=== PATIENT | female | born 1970 | race Caucasian/White ===

== ENCOUNTER 2017-01-05 01:14 | Emergency (ER) | payer SELFPAY ==
[2017-01-05 01:17] VITALS: BP 157/86; PULSE 83; RESP 15; TEMP 99.6; O2SAT 98
[2017-01-05] MEDS ORDERED: MELO-1 PO (02:10)
[2017-01-05] MEDS ORDERED: PAXI30TA7 PO (02:13)
[2017-01-05] MEDS ORDERED: HUMI40KI SQ (02:13)
[2017-01-05] MEDS ORDERED: PRIL10PO (02:14)
[2017-01-05] MEDS ORDERED: HYDR-3288 PO (02:14)
[2017-01-05] MEDS ORDERED: HYDROmorphone HCL PF 1 MG/ML VIAL IV PUSH ONE (02:15)
[2017-01-05] MEDS ORDERED: ONDANSETRON HCL 4 MG/2 ML VIAL IV PUSH ONE (02:15)
[2017-01-05] MEDS ORDERED: ALPR.5 PO (02:15)
[2017-01-05] MEDS ORDERED: EYESOL12 EACH EYE (02:15)
--- NOTE | 2017-01-05 02:15 | PD ---
HPI Chief Complaint: Pain: Acute or Chronic Time Seen by Provider: 02:07 Travel History International Travel<30 days: No Contact w/Intl Traveler<30days: No Traveled to known affect area: No History of Present Illness HPI PATIENT STATES SHE HAS A H/O SPONDYLITIS? FOR WHICH SHE IS ON HUMIRA AND MELOXICAM....OVER LAST TWO DAYS SHE HAS HAD CHUNG, OVER FOREHEAD, 01/08, NO PHOTOPHOBIA, MELOXICAM WAS HELPING BUT SHE HAS RAN OUT OF IT RECENTLY. DENIES FEVER/N/V/D/ABD PAIN PFSH Social History Tobacco Use: No Allergies-Medications (Allergen,Severity, Reaction): Coded Allergies: No Known Allergies (Unverified , 01/05/17) Reported Meds & Prescriptions Reported Meds & Active Scripts Active Fioricet (Lrzfgeqbbh-Egibcgaduhpwu-Fjdixcgo) 50-300-40 Mg Cap 1 Cap PO Q4H PRN Reported Eye Drops Allergy Relief Opth Drops (Tetrahydrozoline-Zinc Sulfate Opth Drops) 0.05-0.25 % Soln 1 Drop EACH EYE BID Xanax (Alprazolam) 0.5 Mg Tab 0.5 Mg PO Q6H PRN Prilosec (Omeprazole Magnesium) 10 Mg Pow [place] (Hydrocodone-Acetaminophen) 7.5-325 mg Tab 1 Tab PO Q4H PRN Paxil (Paroxetine HCl) 30 Mg Tab 40 Mg PO DAILY Humira 2-Pack Inj (Adalimumab 2-Pack Inj) 40 Mg/0.8 Ml Syr 40 Mg SQ Q14D Meloxicam 15 Mg Tab 15 Mg PO DAILY Review of Systems Except as stated in HPI: all other systems reviewed are Neg HENT: Positive: Headaches Physical Exam Narrative GENERAL: SKIN: Warm and dry. HEAD: Atraumatic. Normocephalic. EYES: Pupils equal and round. No scleral icterus. No injection or drainage. ENT: No nasal bleeding or discharge. Mucous membranes pink and moist. TTP OVER MAXILLA/FRONTAL SINUS NECK: Trachea midline. No JVD. CARDIOVASCULAR: Regular rate and rhythm. RESPIRATORY: No accessory muscle use. Clear to auscultation. Breath sounds equal bilaterally. GASTROINTESTINAL: Abdomen soft, non-tender, nondistended. Hepatic and splenic margins not palpable. MUSCULOSKELETAL: Extremities without clubbing, cyanosis, or edema. No obvious deformities. NEUROLOGICAL: Awake and alert. No obvious cranial nerve deficits. Motor grossly within normal limits. Five out of 5 muscle strength in the arms and legs. Normal speech. PSYCHIATRIC: Appropriate mood and affect; insight and judgment normal. Data Data Last Documented VS Vital Signs Date Time Temp Pulse Resp B/P Pulse Ox O2 Delivery O2 Flow Rate FiO2 01/05/17 03:47 83 18 127/62 98 01/05/17 01:17 99.6 Room Air Orders Influenzae A/B Antigen (01/05/17 02:15) Ct Brain W/O Iv Contrast(Rout) (01/05/17 02:15) Iv Access Insert/Monitor (01/05/17 02:15) Ed Urine Pregnancytest Poc (01/05/17 02:15) Ondansetron Inj (Zofran Inj) (01/05/17 02:15) Hydromorphone Pf Inj (Dilaudid Pf Inj) (01/05/17 02:15) MDM Medical Decision Making Medical Screen Exam Complete: Yes Emergency Medical Condition: Yes Medical Record Reviewed: Yes Differential Diagnosis FLU V SINUSITIS V TENSION CHUNG Narrative Course FLU NEG, CT NEG FOR ICH/SINUS DZ...CURRENTLY PATIENT IS DOING WELL AND PAIN IS UNDER CONTROL Diagnosis Primary Impression: TENSION HEADACHE Scripts Souvverhca-Xgoxvmngwufrh-Loomxrvs (Fioricet)50-300-40 Mg Cap1 Cap PO Q4H PRN ( HEADACHE) #20 CAP Ref 0 Prov:Darian Sandoval MD 01/05/17 Disposition: 01 DISCHARGE HOME Condition: Stable Darian Sandoval MD Jan 05, 2017 02:15
--- NOTE | 2017-01-05 03:01 | RADRPT ---
EXAM DATE/TIME: 01/05/2017 02:35 [place] COMPARISON: No previous studies available for comparison. INDICATIONS : Cephalgia. RADIATION DOSE: 56.35 CTDIvol (mGy) MEDICAL HISTORY : None SURGICAL HISTORY : None. ENCOUNTER: Initial ACUITY: 1 day PAIN SCALE: 8/10 LOCATION: cranial TECHNIQUE: Multiple contiguous axial images were obtained of the head. Using automated exposure control and adj ustment of the mA and/or kV according to patient size, radiation dose was kept as low as reasonably a chievable to obtain optimal diagnostic quality images. DICOM format image data is available electro nically for review and comparison. FINDINGS: CEREBRUM: The ventricles are normal for age. No evidence of midline shift, mass lesion, hemorrhage or acute in farction. No extra-axial fluid collections are seen. POSTERIOR FOSSA: The cerebellum and brainstem are intact. The 4th ventricle is midline. The cerebellopontine angle i s unremarkable. EXTRACRANIAL: The visualized portion of the orbits is intact. SKULL: The calvaria is intact. No evidence of skull fracture. CONCLUSION: Negative exam. Jace Curiel MD on January 05, 2017 at 2:58 Board Certified Radiologist. This report was verified electronically.
[2017-01-05] MEDS ORDERED: BUTA1CAP PO (03:11)
[2017-01-05 03:47] VITALS: BP 127/62
== END 2017-01-05 03:48 | disposition home or self-care (01) ==
LOC: NEPC 01:14
DX: G44.209 Tension-type headache, unspecified, not intractable (principal); Z79.899 Other long term (current) drug therapy
CPT/HCPCS: 70450; 84703; 87804; 96374; 96375; 99285; J1170; J2405

== ENCOUNTER 2017-01-05 14:56 | Inpatient (IN) | payer SELFPAY ==
[~2017-01-05] VITALS: Ht 162.6 cm; Wt 130.6 kg
[~2017-01-05 14:56] MED LIST: ALPR.5 PO; BUTA1CAP PO; EYESOL12 EACH EYE; HUMI40KI SQ; HYDR-3288 PO; MELO-1 PO; PAXI30TA7 PO; PRIL10PO
[2017-01-05 14:57] VITALS: BP 163/90; PULSE 89; RESP 15; TEMP 98.1; O2SAT 99
--- NOTE | 2017-01-05 15:07 | PD ---
Physical Exam Time Seen by Provider: 15:01 Narrative 46yo F c/o continued nausea, backaches, CHUNG, shivering, low grade fever 99.8 yesterday x 2-3 days now. Was here yesterday had CT head and flu, which were both negative. Was given Dilaudid yesterday w/ resolution of CHUNG. Returns with continued, but not worsening of symptoms. Hx of rheumatoid arthritis. Patient seen in triage. VS reviewed. Awaiting bed placement. Data Data Last Documented VS Vital Signs Date Time Temp Pulse Resp B/P Pulse Ox O2 Delivery O2 Flow Rate FiO2 01/05/17 14:57 98.1 89 15 163/90 99 MDM Supervised Visit with TONIE: Jessica George Jan 05, 2017 15:07
[2017-01-05] MEDS ORDERED: PROCHLORPERAZINE INJ 10 MG/2 ML VIAL IVP ONE (15:30)
[2017-01-05] MEDS ORDERED: ACETAMINOPHEN 325 MG TAB PO ONE (15:30)
[2017-01-05] MEDS ORDERED: SODIUM CHLOR 0.9% 1000 ML INJ 1,000 ML IV ONE (15:30)
[2017-01-05] MEDS ORDERED: SODIUM CHLORIDE 0.9% FLUSH 10 ML FLUSH IVF PRN (15:30)
[2017-01-05] MEDS ORDERED: diphenhydrAMINE HCL 50 MG/ML VIAL IVP ONE (15:30)
[2017-01-05 16:13] LABS: AUTOMATED NEUTROPHIL # 4.2 TH/MM3 (1.8-7.7); BASOPHIL % 0.5 % (0.0-2.0); EOSINOPHIL # 0.2 TH/MM3 (0-0.4); EOSINOPHIL % 3.1 % (0.0-4.0); HEMATOCRIT 30.4 % (35.0-46.0); HEMO FLAGS DIFF FINAL; LYMPH % 22.5 % (9.0-44.0); LYMPHOCYTE # 1.6 TH/MM3 (1.0-4.8); MEAN CELL VOLUME 69.3 FL (80.0-100.0); MEAN CORPUSCULAR HEMOGLOBIN 21.8 PG (27.0-34.0); MEAN CORPUSCULAR HGB CONC 31.5 % (32.0-36.0); NEUT % 56.9 % (16.0-70.0); PLATELET COUNT 405 TH/MM3 (150-450); RED BLOOD COUNT 4.39 MIL/MM3 (4.00-5.30); RED CELL DISTRIBUTION WIDTH 17.2 % (11.6-17.2); WHITE BLOOD COUNT 7.3 TH/MM3 (4.0-11.0)
[2017-01-05 16:14] LABS: PROTHROMBIN TIME - PATIENT 10.6 SEC (9.8-11.6)
[2017-01-05 16:29] LABS: BICARBONATE 26.4 MEQ/L (21.0-32.0); POTASSIUM 4.1 MEQ/L (3.5-5.1)
[2017-01-05] MEDS ORDERED: PROMETHAZINE INJ 25 MG/ML VIAL IM ONE (16:45)
--- NOTE | 2017-01-05 16:45 | PD ---
HPI Chief Complaint: Cold / Flu Symptoms Time Seen by Provider: 15:19 Travel History International Travel<30 days: No Contact w/Intl Traveler<30days: No Traveled to known affect area: No History of Present Illness HPI The patient is 46 years old. She arrives to the ER having been here last night for headache. That time a CT scan of the brain was performed and was normal. She received abortive therapy with excellent effect. She went home however headache returned. Location retro-orbital. She states that it is severe. There is photophobia. It has been present for 2 days. She reports a slight subjective fever. She does suffer with headaches however this is worse than normal. Onset at rest. Vomiting reported. She reports neck stiffness worse with flexion of the chin towards the sternum. She reports a history of meningitis in December 2004. A spinal tap was performed at that point. She reports a history of L4 5 lumbar fusion. PFSH Past Medical History Arthritis: Yes Diminished Hearing: No Headaches: Yes Tetanus Vaccination: Unknown Influenza Vaccination: Yes ?: Not : 3 Para: 2 Miscarriage: 0 : 1 Past Surgical History Cholecystectomy: Yes Other Surgery: Yes (lower lumbar fusions ) Social History Alcohol Use: Yes (occasional ) Tobacco Use: Yes Substance Use: No Allergies-Medications (Allergen,Severity, Reaction): Coded Allergies: No Known Allergies (Unverified , 01/05/17) Reported Meds & Prescriptions Reported Meds & Active Scripts Active Fioricet (Uwycrrrpwm-Xrzswheadtsqx-Cxkhtnld) 50-300-40 Mg Cap 1 Cap PO Q4H PRN Reported Eye Drops Allergy Relief Opth Drops (Tetrahydrozoline-Zinc Sulfate Opth Drops) 0.05-0.25 % Soln 1 Drop EACH EYE BID Xanax (Alprazolam) 0.5 Mg Tab 0.5 Mg PO Q6H PRN Prilosec (Omeprazole Magnesium) 10 Mg Pow [place] (Hydrocodone-Acetaminophen) 7.5-325 mg Tab 1 Tab PO Q4H PRN Paxil (Paroxetine HCl) 30 Mg Tab 40 Mg PO DAILY Humira 2-Pack Inj (Adalimumab 2-Pack Inj) 40 Mg/0.8 Ml Syr 40 Mg SQ Q14D Meloxicam 15 Mg Tab 15 Mg PO DAILY Review of Systems Except as stated in HPI: all other systems reviewed are Neg Physical Exam Narrative GENERAL: 46 yo F, BMI 49, mild distress 2/2 pain and/or nausea SKIN: Warm and dry. HEAD: Atraumatic. Normocephalic. Pt has intact rotation/flexion/extension. EYES: No injection or drainage. Pupils equal round and reactive to light. Normal range of motion with conjugate gaze ENT: No nasal bleeding or discharge. Mucous membranes pink and moist. NECK: Trachea midline. No JVD. CARDIOVASCULAR: Regular rate and rhythm. RESPIRATORY: No accessory muscle use. Clear to auscultation. Breath sounds equal bilaterally. GASTROINTESTINAL: Abdomen soft, non-tender, nondistended. Hepatic and splenic margins not palpable. MUSCULOSKELETAL: Extremities without clubbing, cyanosis, or edema. No obvious deformities. NEUROLOGICAL: Awake and alert. No obvious cranial nerve deficits. Motor grossly within normal limits. Five out of 5 muscle strength in the arms and legs. Normal speech. PSYCHIATRIC: Appropriate mood and affect; insight and judgment normal. Data Data Last Documented VS Vital Signs Date Time Temp Pulse Resp B/P Pulse Ox O2 Delivery O2 Flow Rate FiO2 01/05/17 16:40 20 01/05/17 14:57 98.1 89 163/90 99 Vital signs reviewed Orders Complete Blood Count With Diff (01/05/17 15:30) Basic Metabolic Panel (Bmp) (01/05/17 15:30) Westergren Sedimentation Rate (01/05/17 15:30) Prothrombin Time / Inr (Pt) (01/05/17 15:30) Csf Cell Count + Differential (01/05/17 15:30) Glucose, Csf (01/05/17 15:30) Total Protein, Csf (01/05/17 15:30) Ecg Monitoring (01/05/17 15:30) Iv Access Insert/Monitor (01/05/17 15:30) Oximetry (01/05/17 15:30) Sodium Chloride 0.9% Flush (Ns Flush) (01/05/17 15:30) Acetaminophen (Tylenol) (01/05/17 15:30) Prochlorperazine Inj (Compazine Inj) (01/05/17 15:30) Diphenhydramine Inj (Benadryl Inj) (01/05/17 15:30) Sodium Chlor 0.9% 1000 Ml Inj (Ns 1000 M (01/05/17 15:30) Lumbar Puncture (01/05/17 ) Vital Signs (Adult) .On admission (01/05/17 15:42) Notify Radiology (01/05/17 15:42) Promethazine Inj (Phenergan Inj) (01/05/17 16:45) Labs Laboratory Tests Test 01/05/17 15:45 White Blood Count 7.3 TH/MM3 Red Blood Count 4.39 MIL/MM3 Hemoglobin 9.6 GM/DL Hematocrit 30.4 % Mean Corpuscular Volume 69.3 FL Mean Corpuscular Hemoglobin 21.8 PG Mean Corpuscular Hemoglobin 31.5 % Concent Red Cell Distribution Width 17.2 % Platelet Count 405 TH/MM3 Mean Platelet Volume 7.9 FL Neutrophils (%) (Auto) 56.9 % Lymphocytes (%) (Auto) 22.5 % Monocytes (%) (Auto) 17.0 % Eosinophils (%) (Auto) 3.1 % Basophils (%) (Auto) 0.5 % Neutrophils # (Auto) 4.2 TH/MM3 Lymphocytes # (Auto) 1.6 TH/MM3 Monocytes # (Auto) 1.2 TH/MM3 Eosinophils # (Auto) 0.2 TH/MM3 Basophils # (Auto) 0.0 TH/MM3 CBC Comment DIFF FINAL Differential Comment Erythrocyte Sedimentation Rate 46 mm/hr Prothrombin Time 10.6 SEC Prothromb Time International 1.0 RATIO Ratio Sodium Level 133 MEQ/L Potassium Level 4.1 MEQ/L Chloride Level 100 MEQ/L Carbon Dioxide Level 26.4 MEQ/L Anion Gap 7 MEQ/L Blood Urea Nitrogen 15 MG/DL Creatinine 0.65 MG/DL Estimat Glomerular Filtration 99 ML/MIN Rate Random Glucose 142 MG/DL Calcium Level 8.4 MG/DL [facility] Medical Decision Making Medical Screen Exam Complete: Yes Emergency Medical Condition: Yes Differential Diagnosis Aneurysm, subarachnoid hemorrhage, meningitis, subdural hematoma, thrombotic disease, migraine, chronic pain, tension headache, idiopathic intracranial HTN Narrative Course CBC & BMP Diagram 01/05/17 15:45 INR is 1.0 ESR 46 Patient reports a history of anemia, however is unsure of normal hgb value. We had a head CT from 14 hours prior which is normal. Due to habitus and the presence of lumbar spine hardware fluoroscopic guided lumbar puncture has been ordered. An invasive procedures service called at 4:50 PM and stated they would be able to do the procedure by about 5:40PM. The patient did vomit at approximately 4:30 PM and Phenergan was added. The patient had received Compazine about 30 minutes prior. At 455pm pt reassessed and reports mild to moderate improvement of cephalgia. Nausea improved after phenergan. Oncoming provider to reassess patient, follow up LP results and disposition appropriately. Steve Gupta MD Jan 05, 2017 16:45
[2017-01-05 17:57] VITALS: BP 145/88; PULSE 82; RESP 15; TEMP 99.1; O2SAT 96
--- NOTE | 2017-01-05 18:45 | PD.RAD ---
Post Procedure Progress Note Pre Procedure Diagnosis: (1) CHUNG (headache) Post Procedure Diagnosis: (1) CHUNG (headache) Procedure Date: Jan 05, 2017 Supervising Radiologist: Ben Barkley Proceduralist/Assist: Hailey Conroy, RT(R)(CV), Stacie Weston RT(R)() Anesthesia: Local Plan of Activity Patient to Unit: Nursing Unit Patient Condition: Good Additional Comments: L2-3 puncture. Clear CSF. Openning pressure=20.25 cmH20 See PACS Report for procedural detail/treatment Ben Barkley MD Jan 05, 2017 18:45
[2017-01-05 19:21] VITALS: BP 155/87; PULSE 80; RESP 16; O2SAT 98
[2017-01-05 20:07] LABS: CSF LYMPHOCYTES 76 %; CSF MONOCYTES 22 %; CSF NEUTROPHILS 2 %
[2017-01-05 20:08] LABS: GROSS BLOOD TUBE #1 0 (0); GROSS BLOOD TUBE #2 0 (0); GROSS BLOOD TUBE #3 0 (0); GROSS BLOOD TUBE #4 0 (0); SUPERNATE COLOR TUBE #1 CLEAR (CLEAR); SUPERNATE COLOR TUBE #2 CLEAR (CLEAR); SUPERNATE COLOR TUBE #3 CLEAR (CLEAR); SUPERNATE COLOR TUBE #4 CLEAR (CLEAR); VOLUME TUBE # 1 2.5 ML; VOLUME TUBE # 2 2.5 ML; VOLUME TUBE # 3 2.5 ML; VOLUME TUBE # 4 3.5 ML
[2017-01-05 20:09] LABS: WBC TUBE #4 36 /MM3 (0-10)
--- NOTE | 2017-01-05 20:19 | PD ---
Physical Exam Date Seen by Provider: Jan 05, 2017 Time Seen by Provider: 20:35 Narrative 46-year-old female came to the emergency with history of headache, photophobia, fever and neck stiffness. Patient was seen by the previous ER physician. Please refer to his notes regarding the details on history and physical. Case was signed over to me to follow-up on the lumbar puncture results. The report came back with elevated WBC count and protein. I've given her meningitic dose of Rocephin IV and patient has been admitted to the hospitalist. I informed this to the patient and her and they understand and an okay with the plan. Data Data Last Documented VS Vital Signs Date Time Temp Pulse Resp B/P Pulse Ox O2 Delivery O2 Flow Rate FiO2 01/05/17 19:21 80 16 155/87 98 Room Air 01/05/17 17:57 99.1 Orders Complete Blood Count With Diff (01/05/17 15:30) Basic Metabolic Panel (Bmp) (01/05/17 15:30) Westergren Sedimentation Rate (01/05/17 15:30) Prothrombin Time / Inr (Pt) (01/05/17 15:30) Csf Cell Count + Differential (01/05/17 15:30) Glucose, Csf (01/05/17 15:30) Total Protein, Csf (01/05/17 15:30) Ecg Monitoring (01/05/17 15:30) Iv Access Insert/Monitor (01/05/17 15:30) Oximetry (01/05/17 15:30) Sodium Chloride 0.9% Flush (Ns Flush) (01/05/17 15:30) Acetaminophen (Tylenol) (01/05/17 15:30) Prochlorperazine Inj (Compazine Inj) (01/05/17 15:30) Diphenhydramine Inj (Benadryl Inj) (01/05/17 15:30) Sodium Chlor 0.9% 1000 Ml Inj (Ns 1000 M (01/05/17 15:30) Lumbar Puncture (01/05/17 ) Vital Signs (Adult) .On admission (01/05/17 15:42) Notify Radiology (01/05/17 15:42) Promethazine Inj (Phenergan Inj) (01/05/17 16:45) Vital Signs (Adult) .As directed (01/05/17 18:44) Activity Bed Rest (01/05/17 18:44) Notify Radiology (01/05/17 18:44) ^ Encourage Fluids (01/05/17 18:44) Anticoagulant Alert (01/05/17 18:44) Csf Culture And Gram Stain (01/05/17 18:35) Ceftriaxone Inj (Rocephin Inj) (01/05/17 20:30) Blood Culture (01/05/17 20:18) Admit Order (Ed Use Only) (01/05/17 20:34) Labs Laboratory Tests Test 01/05/17 01/05/17 15:45 18:35 White Blood Count 7.3 TH/MM3 Red Blood Count 4.39 MIL/MM3 Hemoglobin 9.6 GM/DL Hematocrit 30.4 % Mean Corpuscular Volume 69.3 FL Mean Corpuscular Hemoglobin 21.8 PG Mean Corpuscular Hemoglobin 31.5 % Concent Red Cell Distribution Width 17.2 % Platelet Count 405 TH/MM3 Mean Platelet Volume 7.9 FL Neutrophils (%) (Auto) 56.9 % Lymphocytes (%) (Auto) 22.5 % Monocytes (%) (Auto) 17.0 % Eosinophils (%) (Auto) 3.1 % Basophils (%) (Auto) 0.5 % Neutrophils # (Auto) 4.2 TH/MM3 Lymphocytes # (Auto) 1.6 TH/MM3 Monocytes # (Auto) 1.2 TH/MM3 Eosinophils # (Auto) 0.2 TH/MM3 Basophils # (Auto) 0.0 TH/MM3 CBC Comment DIFF FINAL Differential Comment Erythrocyte Sedimentation Rate 46 mm/hr Prothrombin Time 10.6 SEC Prothromb Time International 1.0 RATIO Ratio Sodium Level 133 MEQ/L Potassium Level 4.1 MEQ/L Chloride Level 100 MEQ/L Carbon Dioxide Level 26.4 MEQ/L Anion Gap 7 MEQ/L Blood Urea Nitrogen 15 MG/DL Creatinine 0.65 MG/DL Estimat Glomerular Filtration 99 ML/MIN Rate Random Glucose 142 MG/DL Calcium Level 8.4 MG/DL CSF Volume (Tube 1) 2.5 ML CSF Supernatant Color (tube 1) CLEAR CSF Gross Blood (Tube 1) 0 CSF Volume (Tube 2) 2.5 ML CSF Supernatant Color (tube 2) CLEAR CSF Gross Blood (Tube 2) 0 CSF Volume (Tube 3) 2.5 ML CSF Supernatant Color (tube 3) CLEAR CSF Gross Blood (Tube 3) 0 CSF Volume (Tube 4) 3.5 ML CSF Supernatant Color (tube 4) CLEAR CSF Gross Blood (Tube 4) 0 CSF WBC (Tube 4) 36 /MM3 CSF RBC (Tube 4) 11 /MM3 CSF Neutrophils 2 % CSF Lymphocytes 76 % CSF Monocytes 22 % CSF Glucose 50 MG/DL CSF Total Protein 47.4 MG/DL MDM Supervised Visit with TONIE: No Diagnosis Primary Impression: Meningitis Admitting Information Admitting Physician Requests: Admit Alok Weiss MD Jan 05, 2017 20:19
[2017-01-05] MEDS ORDERED: cefTRIAXone INJ 2,000 MG in SODIUM CHLORIDE 0.9% INJ 100 ML IV ONE (20:30)
[2017-01-05] MEDS ORDERED: BISACODYL 10 MG SUPP RECTAL PRN (21:00)
[2017-01-05] MEDS ORDERED: ACETAMINOPHEN 325 MG TAB PO PRN (21:00)
[2017-01-05] MEDS ORDERED: LACTULOSE SYRUP 20 GM/30 ML CUP PO PRN (21:00)
[2017-01-05] MEDS ORDERED: MAGNESIUM HYDROXIDE SUSP 30 ML CUP PO PRN (21:00)
[2017-01-05] MEDS ORDERED: SODIUM CHLORIDE 0.9% FLUSH 10 ML FLUSH IV FLUSH PRN (21:00)
[2017-01-05] MEDS ORDERED: SENNOSIDES 8.6 MG TAB PO PRN (21:00)
[2017-01-05] MEDS ORDERED: NALOXONE HCL 0.4 MG/ML AMP IV PRN (21:00)
[2017-01-05] MEDS ORDERED: ONDANSETRON HCL 4 MG/2 ML VIAL IVP PRN (21:00)
[2017-01-05] MEDS: SODIUM CHLORIDE 0.9% FLUSH 10 ML FLUSH IV FLUSH SCH (21:03)
[2017-01-05] MEDS: DOCUSATE SODIUM 50 MG/SENNA 8.6 MG TAB PO SCH (21:03)
[2017-01-05 22:15] VITALS: BP 127/66; PULSE 72; RESP 18; TEMP 97.6; O2SAT 94
--- NOTE | 2017-01-05 22:55 | HHI.HP ---
[facility]Staff Admission Diagnosis meningitis Diagnoses: Chief Complaint: Headache Travel History International Travel<30 Days: No Contact w/Intl Traveler <30 Da: No Traveled to Known Affected Are: No History of Present Illness Written by NERISSA Fuller acting as scribe for Dr. Medina] on 01/05/17 at 22:22. 46 y/o female visiting from [place] with a history of CHUNG, Depression, dry eyes, RA and meningitis 2004 presented to the ED with complaints of increased Headaches since Sunday. She was seen early this morning in the ED, was given medication and then discharged. She states the pain improved for a little bit but then got work tonight. She states it is a dull ache, currently 3/10 behind both her eyes made worse with light and sound. In ED it was a 10/10 with associated nausea, vomiting, and sob. She states at home she also have fevers of 99, chills, and neck stiffness. Denies any chest pain. Review of Systems Constitutional: COMPLAINS OF: Fever, Chills Eyes: COMPLAINS OF: Photosensitivity Respiratory: COMPLAINS OF: Shortness of breath, DENIES: Cough Cardiovascular: DENIES: Chest pain, Lower Extremity Edema Gastrointestinal: COMPLAINS OF: Nausea, Vomiting Genitourinary: DENIES: Hematuria, Dysuria Musculoskeletal: COMPLAINS OF: Stiffness (neck), DENIES: Back pain Integumentary: DENIES: Rash Hematologic/lymphatic: DENIES: Lymphadenopathy Immunologic/allergic: DENIES: Urticaria Neurologic: COMPLAINS OF: Headache Psychiatric: DENIES: Confusion Past Family Social History Past Medical History Headaches RA Meningitis 2004 Dry eyes Depression Past Surgical History Cholecystectomy Tonsillectomy Tubal ligation Lumbar fusion L4-5 Reported Medications Reported Meds & Active Scripts Active Fioricet (Jorsfwhfbu-Tivqidgzmtteq-Zexdcrdd) 50-300-40 Mg Cap 1 Cap PO Q4H PRN Reported Eye Drops Allergy Relief Opth Drops (Tetrahydrozoline-Zinc Sulfate Opth Drops) 0.05-0.25 % Soln 1 Drop EACH EYE BID Xanax (Alprazolam) 0.5 Mg Tab 0.5 Mg PO Q6H PRN Prilosec (Omeprazole Magnesium) 10 Mg Pow [place] (Hydrocodone-Acetaminophen) 7.5-325 mg Tab 1 Tab PO Q4H PRN Paxil (Paroxetine HCl) 30 Mg Tab 40 Mg PO DAILY Humira 2-Pack Inj (Adalimumab 2-Pack Inj) 40 Mg/0.8 Ml Syr 40 Mg SQ Q14D Meloxicam 15 Mg Tab 15 Mg PO DAILY Allergies: Coded Allergies: No Known Allergies (Unverified , 01/05/17) Active Ordered Medications Current Medications Medications (Trade) Dose Ordered Sig/John Route Start Time Stop Time Status Last Admin (NS Flush) 2 ml UNSCH PRN IV FLUSH 01/05/17 21:00 (NS Flush) 2 ml BID IV FLUSH 01/05/17 21:00 01/05/17 21:03 (Tylenol) 650 mg Q4H PRN PO 01/05/17 21:00 (Zofran Inj) 4 mg Q6H PRN IVP 01/05/17 21:00 (Narcan Inj) 0.4 mg UNSCH PRN IV 01/05/17 21:00 (Paulette-Colace) 1 tab BID PO 01/05/17 21:00 01/05/17 21:03 (Milk Of Magnesia Liq) 30 ml Q12H PRN PO 01/05/17 21:00 (Senokot) 17.2 mg Q12H PRN PO 01/05/17 21:00 (Dulcolax Supp) 10 mg DAILY PRN RECTAL 01/05/17 21:00 Lactulose 30 ml 30 ml DAILY PRN PO 01/05/17 21:00 (Rocephin Inj/NS Inj) 100 ml @ 200 mls/hr Q24H IV 01/06/17 20:00 Family History Dad: Heart disease Social History Patient denies any tobacco, alcohol or illicit drug use. Physical Exam Vital Signs Vital Signs Date Time Temp Pulse Resp B/P Pulse Ox O2 Delivery O2 Flow Rate FiO2 01/05/17 19:21 80 16 155/87 98 Room Air 01/05/17 17:57 99.1 82 15 145/88 96 Room Air 01/05/17 16:40 20 01/05/17 14:57 98.1 89 15 163/90 99 Physical Exam GENERAL: This is a well-nourished, obese patient laying in bed resting SKIN: No rashes, ecchymoses or lesions. Cool and dry. HEAD: Atraumatic. Normocephalic. No temporal or scalp tenderness. EYES: Pupils equal round and reactive. Extraocular motions intact. ENT: Nose without bleeding, purulent drainage or septal hematoma. Throat without erythema, tonsillar hypertrophy or exudate. Uvula midline. Airway patent. NECK: Trachea midline. No JVD or lymphadenopathy. Tenderness in neck CARDIOVASCULAR: Regular rate and rhythm without murmurs, gallops, or rubs. RESPIRATORY: Clear to auscultation. Breath sounds equal bilaterally. No wheezes , rales, or rhonchi. GASTROINTESTINAL: Abdomen soft, non-tender, nondistended MUSCULOSKELETAL: Extremities without clubbing, cyanosis, or edema. No joint tenderness, effusion, or edema noted. No calf tenderness. NEUROLOGICAL: Awake and alert. Motor and sensory grossly within normal limits. Normal speech. Laboratory Laboratory Tests Test 01/05/17 01/05/17 15:45 18:35 White Blood Count 7.3 Red Blood Count 4.39 Hemoglobin 9.6 Hematocrit 30.4 Mean Corpuscular Volume 69.3 Mean Corpuscular Hemoglobin 21.8 Mean Corpuscular Hemoglobin 31.5 Concent Red Cell Distribution Width 17.2 Platelet Count 405 Mean Platelet Volume 7.9 Neutrophils (%) (Auto) 56.9 Lymphocytes (%) (Auto) 22.5 Monocytes (%) (Auto) 17.0 Eosinophils (%) (Auto) 3.1 Basophils (%) (Auto) 0.5 Neutrophils # (Auto) 4.2 Lymphocytes # (Auto) 1.6 Monocytes # (Auto) 1.2 Eosinophils # (Auto) 0.2 Basophils # (Auto) 0.0 CBC Comment DIFF FINAL Differential Comment Erythrocyte Sedimentation Rate 46 Prothrombin Time 10.6 Prothromb Time International 1.0 Ratio Sodium Level 133 Potassium Level 4.1 Chloride Level 100 Carbon Dioxide Level 26.4 Anion Gap 7 Blood Urea Nitrogen 15 Creatinine 0.65 Estimat Glomerular Filtration 99 Rate Random Glucose 142 Calcium Level 8.4 CSF Volume (Tube 1) 2.5 CSF Supernatant Color (tube 1) CLEAR CSF Gross Blood (Tube 1) 0 CSF Volume (Tube 2) 2.5 CSF Supernatant Color (tube 2) CLEAR CSF Gross Blood (Tube 2) 0 CSF Volume (Tube 3) 2.5 CSF Supernatant Color (tube 3) CLEAR CSF Gross Blood (Tube 3) 0 CSF Volume (Tube 4) 3.5 CSF Supernatant Color (tube 4) CLEAR CSF Gross Blood (Tube 4) 0 CSF WBC (Tube 4) 36 CSF RBC (Tube 4) 11 CSF Neutrophils 2 CSF Lymphocytes 76 CSF Monocytes 22 CSF Glucose 50 CSF Total Protein 47.4 Date/Time Procedure Status Source Growth 01/05/17 20:38 Aerobic Blood Culture Received Blood Peripheral Pending 01/05/17 20:38 Anaerobic Blood Culture Received Blood Peripheral Pending 01/05/17 18:35 Gram Stain - Final Resulted Cerebral Spinal Fluid Lumbar Puncture 01/05/17 18:35 CSF Culture Resulted Cerebral Spinal Fluid Lumbar Puncture Pending Result Diagram: 01/05/17 1545 01/05/17 1545 Assessment and Plan Problem List: (1) Meningitis ICD Code: G03.9 Status: Acute Assessment and Plan 46 y/o female visiting from [place] with a history of CHUNG, RA and meningitis 2004 presented to the ED with complaints of increased Headaches since Sunday. Meningitis, suspected viral -Lumbar puncture completed, CSF shows protein 47.4, wbc 36, cultures pending -Consult Infectious disease for recommendations - Rocephin IV -Fioricet for pain management Depression, chronic -Cont home medication: Paxil DVT prophylaxis: SCDs This note was transcribed by brandon El. I, Dr. Candido Terrazas personally performed the history, physical exam, and medical decision making; and confirmed the accuracy of the information in the transcribed note. Authenticated by Dr. Candido Terrazas on 01/05/17 at 23:17. Discussed Condition With Patient, RN and patients Physician Certification 2 Midnight Certification Type: Admission for Inpatient Services Order for Inpatient Services The services are ordered in accordance with Medicare regulations or non- Medicare payer requirements, as applicable. In the case of services not specified as inpatient-only, they are appropriately provided as inpatient services in accordance with the 2-midnight benchmark. Estimated LOS (days): 2 2 days is the estimated time the patient will need to remain in the hospital, assuming treatment plan goals are met and no additional complications. Post-Hospital Plan: Home Tamara El Jan 05, 2017 22:55 Candido Terrazas MD Jan 05, 2017 23:17
[2017-01-06 04:00] VITALS: BP 135/74; PULSE 76; RESP 18; TEMP 98.3; O2SAT 96
[2017-01-06 07:49] LABS: AUTOMATED NEUTROPHIL # 3.3 TH/MM3 (1.8-7.7); BASOPHIL % 0.5 % (0.0-2.0); EOSINOPHIL # 0.2 TH/MM3 (0-0.4); EOSINOPHIL % 2.3 % (0.0-4.0); HEMATOCRIT 31.5 % (35.0-46.0); HEMO FLAGS DIFF FINAL; LYMPH % 28.8 % (9.0-44.0); LYMPHOCYTE # 1.9 TH/MM3 (1.0-4.8); MEAN CELL VOLUME 70.2 FL (80.0-100.0); MEAN CORPUSCULAR HEMOGLOBIN 21.8 PG (27.0-34.0); MONO % 19.1 % (0.0-8.0); NEUT % 49.3 % (16.0-70.0); PLATELET COUNT 375 TH/MM3 (150-450); RED BLOOD COUNT 4.49 MIL/MM3 (4.00-5.30); RED CELL DISTRIBUTION WIDTH 17.7 % (11.6-17.2); WHITE BLOOD COUNT 6.6 TH/MM3 (4.0-11.0)
[2017-01-06 08:04] VITALS: BP 135/69; PULSE 67; RESP 17; TEMP 97.8; O2SAT 96
[2017-01-06 08:12] LABS: ALT (GPT) 43 U/L (10-53); ANION GAP 7 MEQ/L (5-15); AST (GOT) 34 U/L (15-37); BICARBONATE 28.4 MEQ/L (21.0-32.0); BLOOD UREA NITROGEN 8 MG/DL (7-18); CHLORIDE 104 MEQ/L (98-107); GLOMERULAR FILTRATION RATE 133 ML/MIN (>89); POTASSIUM 3.8 MEQ/L (3.5-5.1); SODIUM (NA) 139 MEQ/L (136-145)
[2017-01-06] MEDS: DOCUSATE SODIUM 50 MG/SENNA 8.6 MG TAB PO SCH ×2 (08:12→21:09)
[2017-01-06] MEDS: PARoxetine HCL 20 MG TAB PO SCH (08:12)
[2017-01-06 08:15] LABS: ALKALINE PHOSPHATASE 368 U/L (45-117); TOTAL BILIRUBIN ADULT 0.6 MG/DL (0.2-1.0)
[2017-01-06] MEDS: ACETAMIN 325 MG/BUTALBITAL 50 MG/CAFFEINE 40 MG TAB PO PRN ×4 (08:18→21:09)
[2017-01-06] MEDS: SODIUM CHLORIDE 0.9% FLUSH 10 ML FLUSH IV FLUSH SCH ×2 (08:18→21:10)
[2017-01-06] MEDS ORDERED: [UNRECOGNIZED DRUG - REMARK] EACH EYE SCH (09:00)
--- NOTE | 2017-01-06 10:56 | HHI.PR ---
Subjective Remarks resting comfortably with no distress. still has some headache and photophobia. no fever, nausea. Objective Vitals Vital Signs Date Time Temp Pulse Resp B/P Pulse Ox O2 Delivery O2 Flow Rate FiO2 01/06/17 08:04 97.8 67 17 135/69 96 01/06/17 04:00 98.3 76 18 135/74 96 01/05/17 23:45 Room Air 01/05/17 22:15 97.6 72 18 127/66 94 01/05/17 19:21 80 16 155/87 98 Room Air 01/05/17 17:57 99.1 82 15 145/88 96 Room Air 01/05/17 16:40 20 01/05/17 14:57 98.1 89 15 163/90 99 I/O 01/05/17 01/05/17 01/05/17 01/06/17 01/06/17 01/06/17 07:00 15:00 23:00 07:00 15:00 23:00 Intake Total 180 ml Balance 180 ml Intake Oral 180 ml # Voids 1 # Bowel Movements 0 Result Diagram: 01/06/17 0712 01/06/17 0712 Objective Remarks GENERAL: This is a well-nourished, well-developed patient, in no apparent distress. CARDIOVASCULAR: Regular rate and regular rhythm without murmurs, gallops, or rubs. RESPIRATORY: Clear to auscultation. Breath sounds equal bilaterally. No wheezes , rales, or rhonchi. GASTROINTESTINAL: Abdomen soft, non-tender, nondistended. Normal, active bowel sounds MUSCULOSKELETAL: Extremities without clubbing, cyanosis, or edema. NEURO: Alert & Oriented x4 to person, place, time, situation. Moves all ext x4 Procedures LP Medications and IVs Current Medications Sodium Chloride (NS Flush) 2 ml UNSCH PRN IVF FLUSH AFTER USING IV ACCESS Last administered on 01/05/17 20:51; Start 01/05/17 at 15:30; Stop 01/05/17 at 20:56; Status DC Acetaminophen (Tylenol) 650 mg ONCE ONCE PO Last administered on 01/05/17 15: 50; Start 01/05/17 at 15:30; Stop 01/05/17 at 15:31; Status DC Prochlorperazine Edisylate (Compazine Inj) 10 mg ONCE ONCE IVP Last administered on 01/05/17 15:50; Start 01/05/17 at 15:30; Stop 01/05/17 at 15:31; Status DC Diphenhydramine HCl 25 mg 25 mg ONCE ONCE IVP Last administered on 01/05/17 15 :50; Start 01/05/17 at 15:30; Stop 01/05/17 at 15:31; Status DC Sodium Chloride (NS 1000 ml Inj) 1,000 ml @ 1,000 mls/hr Q1H ONCE IV Last administered on 01/05/17 15:49; Start 01/05/17 at 15:30; Stop 01/05/17 at 16:29; Status DC Promethazine HCl 25 mg 25 mg ONCE ONCE IM Last administered on 01/05/17 16:48 ; Start 01/05/17 at 16:45; Stop 01/05/17 at 16:46; Status DC Ceftriaxone Sodium/Sodium Chloride (Rocephin Inj/NS Inj) 100 ml @ 200 mls/hr ONCE ONCE IV Last administered on 01/05/17 20:51; Start 01/05/17 at 20:30; Stop 01/05/17 at 20:59; Status DC Sodium Chloride (NS Flush) 2 ml UNSCH PRN IV FLUSH FLUSH AFTER USING IV ACCESS ; Start 01/05/17 at 21:00 Sodium Chloride (NS Flush) 2 ml BID IV FLUSH Last administered on 01/06/17 08: 18; Start 01/05/17 at 21:00 Acetaminophen (Tylenol) 650 mg Q4H PRN PO TEMP > 100.4; Start 01/05/17 at 21:00 Ondansetron HCl (Zofran Inj) 4 mg Q6H PRN IVP NAUSEA OR VOMITING; Start at 21:00 Naloxone HCl (Narcan Inj) 0.4 mg UNSCH PRN IV SEE LABEL COMMENTS; Start at 21:00 Senna/Docusate Sodium (Paulette-Colace) 1 tab BID PO Last administered on 01/06/17 08:12; Start 01/05/17 at 21:00 Magnesium Hydroxide (Milk Of Magnesia Liq) 30 ml Q12H PRN PO MILD - MODERATE CONSTIPATION; Start 01/05/17 at 21:00 Sennosides (Senokot) 17.2 mg Q12H PRN PO MODERATE - SEVERE CONSTIPATION; Start 01/05/17 at 21:00 Bisacodyl (Dulcolax Supp) 10 mg DAILY PRN RECTAL SEVERE CONSITIPATION; Start at 21:00 Lactulose 30 ml 30 ml DAILY PRN PO SEVERE CONSITIPATION; Start 01/05/17 at 21:00 Ceftriaxone Sodium/Sodium Chloride (Rocephin Inj/NS Inj) 100 ml @ 200 mls/hr Q24H IV ; Start 01/06/17 at 20:00 Paroxetine HCl (Paxil) 40 mg DAILY PO Last administered on 01/06/17 08:12; Start 01/06/17 at 09:00 Patient Own Medication PT OWN MED: Tetrahydrozoline-Zinc... BID EACH EYE ; Start 01/06/17 at 09:00; Status Hold Acetaminophen/ Butalbital/ Caffeine (Fioricet 325-50-40) 1 tab Q4H PRN PO HEADACHE Last administered on 01/06/17 08:18; Start 01/05/17 at 23:00 A/P Assessment and Plan A/P Meningitis, suspected viral -Lumbar puncture completed, CSF shows protein 47.4, wbc 36. -Consult Infectious disease for recommendations - Rocephin IV- will give one dose of Vanco -follow the cultures -Fioricet for pain management Depression, chronic -Cont home medication: Paxil DVT prophylaxis: Ondina Chapa MD Jan 06, 2017 10:56
[2017-01-06] MEDS ORDERED: VANCOMYCIN INJ 1,000 MG in SODIUM CHLOR 0.9% 250 ML INJ 250 ML IV ONE (11:00)
[2017-01-06 12:26] VITALS: BP 108/61; PULSE 72; RESP 18; TEMP 98.4; O2SAT 94
--- NOTE | 2017-01-06 15:28 | RADRPT ---
EXAM DATE/TIME: 01/05/2017 18:04 [facility] COMPARISON: No previous studies available for comparison. INDICATIONS : Patient with headaches and neck stiffness in need of lumbar puncture with opening pressures. MEDICAL HISTORY : 1.Headaches 2.Neck stiffness 3.Arthritis SURGICAL HISTORY : 1.Cholecystectomy 2.Lower lumbar fusions ENCOUNTER: Initial ACUITY: 2 days PAIN SCORE: 3/10 cranial LUMBAR PUNCTURE TIME: 1835 hours FLUORO TIME: 0.2 minutes IMAGE SERIES: 0 L2-3 OPENING PRESSURE: 20.25 cm of water CLOSING PRESSURE: Not requested. FLUID: 12 cc of clear CSF was collected and sent to the laboratory for analysis. PROCEDURE : 1. Fluoroscopic guided lumbar puncture. 2. Recording of opening pressure. The risks, benefits and alternatives to the procedure were explained and verbal and written consent w as obtained. The site was prepped in sterile fashion. Full sterile technique was used, including ca p, mask, sterile gloves and gown and a large sterile sheet. Hand hygiene and 2% chlorhexidine and/or betadine/alcohol prep was utilized per protocol for cutaneous antisepsis. The skin and subcutaneous tissues were infiltrated with local anesthetic solution. With fluoroscopic guidance the lumbar thecal sac was punctured at the above level described above and the opening pressure was recorded. The above described fluid was removed without difficulty. The patient tolerated the procedure well and there were no complications. CONCLUSION: Uncomplicated fluoroscopically guided lumbar puncture with pressures as above. Ben Barkley MD on January 06, 2017 at 15:27 Board Certified Radiologist. This report was verified electronically.
--- NOTE | 2017-01-06 15:37 | MB ---
cc: TEVIN CONTEH MD DATE OF CONSULTATION: 01/07/2016 REASON FOR CONSULTATION: Meningitis. REQUESTING PHYSICIAN: Dr. Terrazas. HISTORY OF PRESENT ILLNESS: This is a 46-year-old white female who is vacationing here in [place] from [place], [place]. The patient developed a headache approximately four days ago. She presented to the emergency department yesterday evening because of persistence of the headache and also reported that she had nausea and vomiting and neck stiffness and photophobia. The patient has a history of headaches which she says are the result of dry eyes and she notes frequent headaches from that. However, the headache was worse than normal and she came to emergency department for evaluation. A lumbar puncture was performed and it shows 36 white cells, 76% lymphocytes and 22% monocytes, some slightly elevated protein and normal glucose. CSF culture has no growth at 24 hours. The patient states that she still has photophobia. She was able to eat breakfast this morning and had no nausea. 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 She denies recent travel. She denies unusual pet or animal exposure. She states that she was able to get into the swimming pool at the [facility] where she is vacationing up until yesterday morning but then the headache became worse and she came to the emergency department for evaluation. The patient denies history of herpetic lesions. She is reported to have had meningitis in 2004. The patient describes the location of the headaches as being in the temporal area of the head and also behind the eyes. PAST MEDICAL HISTORY: 1. Rheumatoid arthritis. 2. Depression. 3. Meningitis. 4. Cholecystectomy. 5. Tonsillectomy. 6. Tubal ligation. 7. Lumbar fusion at L4-5. ALLERGIES: NO KNOWN DRUG ALLERGIES. MEDICATIONS: 1. Ceftriaxone. 2. Paxil. 3. Fioricet. 4. Paulette-Colace. SOCIAL HISTORY: The patient denies tobacco, alcohol or illicit drug use. 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 FAMILY HISTORY: Noncontributory. REVIEW OF SYSTEMS: CONSTITUTIONAL: Complains of chills. HEAD, EYES, EARS, NOSE, THROAT: Significant for headache and photophobia. RESPIRATORY: No cough or shortness of breath. CARDIOVASCULAR: No palpitations or chest pain. GASTROINTESTINAL: Significant for nausea and vomiting. GENITOURINARY: No urgency, frequency or dysuria. HEMATOPOIETIC: No easy bruising or bleeding. ENDOCRINE: No polyuria or polydipsia. MUSCULOSKELETAL: Significant for diffuse aches and pains. INTEGUMENT: No skin rash or itching. NEUROLOGIC: Denies problems with coordination. Significant for headache. PSYCHIATRIC: No mood disorders. PHYSICAL EXAMINATION: GENERAL: She is a moderately obese female who is in no acute distress. She is awake and alert and oriented. VITAL SIGNS: Temperature 97.8, blood pressure 135/69, respirations 17, heart rate 67. HEAD, EYES, EARS, NOSE, THROAT: The head is atraumatic. Extraocular movements grossly intact. Pupils reactive to light. No icterus. Oropharynx with no visible lesions. NECK: The neck is supple without adenopathy. LUNGS: Clear to auscultation. HEART: Regular rate and rhythm without murmurs, rubs or gallops. ABDOMEN: Bowel sounds present, soft, nontender. RECTAL: Not performed. EXTREMITIES: No clubbing or cyanosis or edema. SKIN: No diffuse rash. The patient has hyperemia of the face and neck. PSYCHIATRIC: The patient is calm and cooperative. NEUROLOGIC: Nonfocal. LABORATORY DATA: WBC 6.6, platelets 375,000, 49% neutrophils, 28% lymphocytes, 19% monocytes, hemoglobin 9.8. Creatinine 0.5, BUN 8, sodium 139. Liver function tests normal. IMPRESSION: Meningitis, viral versus aseptic. CSF does not suggest bacterial meningitis. RECOMMENDATIONS: 1. Continue to monitor the cerebrospinal fluid. 2. Continue ceftriaxone. 3. Obtain a herpes PCR test on the CSF. 4. Monitor the patient with supportive care and pain medications for headache and follow her clinical response to treatment. Thank you this consultation. I will follow the patient's progress with you and make further recommendations if necessary. Tevin Conteh MD FD/LULA /12:15 PM /3:26 PM MTDAlcides
[2017-01-06 16:04] VITALS: BP 132/67; PULSE 78; RESP 18; TEMP 98.4; O2SAT 98
[2017-01-06 20:00] VITALS: BP 127/71; PULSE 76; RESP 18; TEMP 98.9; O2SAT 95
[2017-01-06] MEDS: cefTRIAXone INJ 2,000 MG in SODIUM CHLORIDE 0.9% INJ 100 ML IV SCH (21:09)
[2017-01-07] VITALS: BP 120/67; PULSE 78; RESP 18; TEMP 98.7; O2SAT 96
[2017-01-07] MEDS: ACETAMIN 325 MG/BUTALBITAL 50 MG/CAFFEINE 40 MG TAB PO PRN ×5 (01:30→17:44)
[2017-01-07 04:00] VITALS: BP 146/77; PULSE 72; RESP 18; TEMP 98.3; O2SAT 97
--- NOTE | 2017-01-07 08:59 | HHI.PR ---
Subjective Remarks in no acute distress. afebrile. headache has improved. d/w the RN and no acute issues over night. Objective Vitals Vital Signs Date Time Temp Pulse Resp B/P Pulse Ox O2 Delivery O2 Flow Rate FiO2 01/07/17 04:00 98.3 72 18 146/77 97 01/07/17 04:00 Room Air 01/07/17 00:00 98.7 78 18 120/67 96 01/07/17 00:00 Room Air 01/06/17 20:00 98.9 76 18 127/71 95 01/06/17 20:00 Room Air 01/06/17 16:04 98.4 78 18 132/67 98 01/06/17 12:26 98.4 72 18 108/61 94 I/O 01/06/17 01/06/17 01/06/17 01/07/17 01/07/17 01/07/17 07:00 15:00 23:00 07:00 15:00 23:00 Intake Total 180 ml 480 ml 590 ml 240 ml Balance 180 ml 480 ml 590 ml 240 ml Intake Oral 180 ml 480 ml 240 ml 240 ml IV Total 350 ml # Voids 1 3 3 2 # Bowel Movements 0 0 1 0 Result Diagram: 01/06/17 0712 01/06/17 0712 Imaging Last Impressions Lumbar Puncture Fluoroscopy 01/05/17 0000 Signed Impressions: Service Date/Time: Thursday, January 05, 2017 18:04 - CONCLUSION: Uncomplicated fluoroscopically guided lumbar puncture with pressures as above. Ben Barkley MD Objective Remarks GENERAL: This is a well-nourished, well-developed patient, in no apparent distress. CARDIOVASCULAR: Regular rate and regular rhythm without murmurs, gallops, or rubs. RESPIRATORY: Clear to auscultation. Breath sounds equal bilaterally. No wheezes , rales, or rhonchi. GASTROINTESTINAL: Abdomen soft, non-tender, nondistended. Normal, active bowel sounds MUSCULOSKELETAL: Extremities without clubbing, cyanosis, or edema. NEURO: Alert & Oriented x4 to person, place, time, situation. Moves all ext x4 Procedures LP Medications and IVs Current Medications Sodium Chloride (NS Flush) 2 ml UNSCH PRN IVF FLUSH AFTER USING IV ACCESS Last administered on 01/05/17t 20:51; Start 01/05/17 at 15:30; Stop 01/05/17 at 20:56; Status DC Acetaminophen (Tylenol) 650 mg ONCE ONCE PO Last administered on 01/05/17 15: 50; Start 01/05/17 at 15:30; Stop 01/05/17 at 15:31; Status DC Prochlorperazine Edisylate (Compazine Inj) 10 mg ONCE ONCE IVP Last administered on 01/05/17 15:50; Start 01/05/17 at 15:30; Stop 01/05/17 at 15:31; Status DC Diphenhydramine HCl 25 mg 25 mg ONCE ONCE IVP Last administered on 01/05/17 15 :50; Start 01/05/17 at 15:30; Stop 01/05/17 at 15:31; Status DC Sodium Chloride (NS 1000 ml Inj) 1,000 ml @ 1,000 mls/hr Q1H ONCE IV Last administered on 01/05/17 15:49; Start 01/05/17 at 15:30; Stop 01/05/17 at 16:29; Status DC Promethazine HCl 25 mg 25 mg ONCE ONCE IM Last administered on 01/05/17 16:48 ; Start 01/05/17 at 16:45; Stop 01/05/17 at 16:46; Status DC Ceftriaxone Sodium/Sodium Chloride (Rocephin Inj/NS Inj) 100 ml @ 200 mls/hr ONCE ONCE IV Last administered on 01/05/17 20:51; Start 01/05/17 at 20:30; Stop 01/05/17 at 20:59; Status DC Sodium Chloride (NS Flush) 2 ml UNSCH PRN IV FLUSH FLUSH AFTER USING IV ACCESS ; Start 01/05/17 at 21:00 Sodium Chloride (NS Flush) 2 ml BID IV FLUSH Last administered on 01/06/17 21: 10; Start 01/05/17 at 21:00 Acetaminophen (Tylenol) 650 mg Q4H PRN PO TEMP > 100.4; Start 01/05/17 at 21:00 Ondansetron HCl (Zofran Inj) 4 mg Q6H PRN IVP NAUSEA OR VOMITING; Start at 21:00 Naloxone HCl (Narcan Inj) 0.4 mg UNSCH PRN IV SEE LABEL COMMENTS; Start at 21:00 Senna/Docusate Sodium (Paulette-Colace) 1 tab BID PO Last administered on 01/06/17 21:09; Start 01/05/17 at 21:00 Magnesium Hydroxide (Milk Of Osiris Lisameera) 30 ml Q12H PRN PO MILD - MODERATE CONSTIPATION; Start 01/05/17 at 21:00 Sennosides (Senokot) 17.2 mg Q12H PRN PO MODERATE - SEVERE CONSTIPATION; Start 01/05/17 at 21:00 Bisacodyl (Dulcolax Supp) 10 mg DAILY PRN RECTAL SEVERE CONSITIPATION; Start at 21:00 Lactulose 30 ml 30 ml DAILY PRN PO SEVERE CONSITIPATION; Start 01/05/17 at 21:00 Ceftriaxone Sodium/Sodium Chloride (Rocephin Inj/NS Inj) 100 ml @ 200 mls/hr Q24H IV Last administered on 01/06/17 21:09; Start 01/06/17 at 20:00 Paroxetine HCl (Paxil) 40 mg DAILY PO Last administered on 01/06/17 08:12; Start 01/06/17 at 09:00 Patient Own Medication PT OWN MED: Tetrahydrozoline-Zinc... BID EACH EYE ; Start 01/06/17 at 09:00; Status Hold Acetaminophen/ Butalbital/ Caffeine 1 tab 1 tab Q4H PRN PO HEADACHE Last administered on 01/07/17 05:35; Start 01/05/17 at 23:00 Vancomycin HCl/ Sodium Chloride (Vancomycin Inj/ NS 250 ml Inj) 250 ml @ 250 mls/hr ONCE ONCE IV Last administered on 01/06/17 12:30; Start 01/06/17 at 11: 00; Stop 01/06/17 at 11:59; Status DC A/P Assessment and Plan A/P Meningitis, suspected viral -Lumbar puncture completed, CSF shows protein 47.4, wbc 36. - Rocephin IV- will give one dose of Vanco -fluid cultures negative so far. -Fioricet for pain management -ID consult appreciated. Depression, chronic -Cont home medication: Paxil DVT prophylaxis: SCDs Discharge Planning when cleared by Ondina Sidhu MD Jan 07, 2017 08:58
[2017-01-07] MEDS: DOCUSATE SODIUM 50 MG/SENNA 8.6 MG TAB PO SCH ×2 (09:31→20:12)
[2017-01-07] MEDS: PARoxetine HCL 20 MG TAB PO SCH (09:31)
[2017-01-07] MEDS: SODIUM CHLORIDE 0.9% FLUSH 10 ML FLUSH IV FLUSH SCH ×2 (09:35→20:12)
[2017-01-07 14:06] VITALS: BP 117/71; PULSE 70; RESP 18; TEMP 99.3; O2SAT 94
--- NOTE | 2017-01-07 16:14 | HHI.IDPN ---
Note Infectious Disease Note Patient notes that the CHUNG is better. No nausea. Was able to ambulate a little in the room. No fever. Says she has back pain radiating down the left leg. CSF culture negative. PAST MEDICAL HISTORY: 1. Rheumatoid arthritis. 2. Depression. 3. Meningitis. 4. Cholecystectomy. 5. Tonsillectomy. 6. Tubal ligation. 7. Lumbar fusion at L4-5. ALLERGIES: NO KNOWN DRUG ALLERGIES. MEDICATIONS: Current Medications Medications (Trade) Dose Ordered Sig/John Route PRN Reason Start Time Stop Time Status Last Admin Dose Admin Sodium Chloride (NS Flush) 2 ml UNSCH PRN IV FLUSH FLUSH AFTER USING IV ACCESS 01/05/17 21:00 Sodium Chloride (NS Flush) 2 ml BID IV FLUSH 01/05/17 21:00 01/07/17 09:35 Acetaminophen (Tylenol) 650 mg Q4H PRN PO TEMP > 100.4 01/05/17 21:00 Ondansetron HCl (Zofran Inj) 4 mg Q6H PRN IVP NAUSEA OR VOMITING 01/05/17 21:00 Naloxone HCl (Narcan Inj) 0.4 mg UNSCH PRN IV SEE LABEL COMMENTS 01/05/17 21:00 Senna/Docusate Sodium (Paulette-Colace) 1 tab BID PO 01/05/17 21:00 01/07/17 09:31 Magnesium Hydroxide (Milk Of Magniraj Lisameera) 30 ml Q12H PRN PO MILD - MODERATE CONSTIPATION 01/05/17 21:00 Sennosides (Senokot) 17.2 mg Q12H PRN PO MODERATE - SEVERE CONSTIPATION 01/05/17 21:00 Bisacodyl (Dulcolax Supp) 10 mg DAILY PRN RECTAL SEVERE CONSITIPATION 01/05/17 21:00 Lactulose 30 ml 30 ml DAILY PRN PO SEVERE CONSITIPATION 01/05/17 21:00 Ceftriaxone Sodium/Sodium Chloride (Rocephin Inj/NS Inj) 100 ml @ 200 mls/hr Q24H IV 01/06/17 20:00 01/06/17 21:09 Paroxetine HCl (Paxil) 40 mg DAILY PO 01/06/17 09:00 01/07/17 09:31 Patient Own Medication PT OWN MED: Tetrahydrozoline-Zinc... BID EACH EYE 01/06/17 09:00 Hold Acetaminophen/ Butalbital/ Caffeine (Fioricet 325-50-40) 1 tab Q4H PRN PO HEADACHE 01/05/17 23:00 01/07/17 13:32 SOCIAL HISTORY: The patient denies tobacco, alcohol or illicit drug use. 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 OBJECTIVE: Vital Signs Date Time Temp Pulse Resp B/P Pulse Ox O2 Delivery O2 Flow Rate FiO2 01/07/17 14:06 99.3 70 18 117/71 94 01/07/17 08:00 96 Room Air 01/07/17 04:00 98.3 72 18 146/77 97 01/07/17 04:00 Room Air 01/07/17 00:00 98.7 78 18 120/67 96 01/07/17 00:00 Room Air 01/06/17 20:00 98.9 76 18 127/71 95 01/06/17 20:00 Room Air 01/06/17 01/06/17 01/07/17 15:00 23:00 07:00 Intake Total 480 ml 590 ml 240 ml Balance 480 ml 590 ml 240 ml Intake Oral 480 ml 240 ml 240 ml IV Total 350 ml # Voids 3 3 2 # Bowel Movements 0 1 0 Laboratory Tests Test 01/06/17 07:12 White Blood Count 6.6 TH/MM3 Red Blood Count 4.49 MIL/MM3 Hemoglobin 9.8 GM/DL Hematocrit 31.5 % Mean Corpuscular Volume 70.2 FL Mean Corpuscular Hemoglobin 21.8 PG Mean Corpuscular Hemoglobin 31.0 % Concent Red Cell Distribution Width 17.7 % Platelet Count 375 TH/MM3 Mean Platelet Volume 7.9 FL Neutrophils (%) (Auto) 49.3 % Lymphocytes (%) (Auto) 28.8 % Monocytes (%) (Auto) 19.1 % Eosinophils (%) (Auto) 2.3 % Basophils (%) (Auto) 0.5 % Neutrophils # (Auto) 3.3 TH/MM3 Lymphocytes # (Auto) 1.9 TH/MM3 Monocytes # (Auto) 1.3 TH/MM3 Eosinophils # (Auto) 0.2 TH/MM3 Basophils # (Auto) 0.0 TH/MM3 CBC Comment DIFF FINAL Differential Comment Laboratory Tests Test 01/06/17 07:12 Sodium Level 139 MEQ/L Potassium Level 3.8 MEQ/L Chloride Level 104 MEQ/L Carbon Dioxide Level 28.4 MEQ/L Anion Gap 7 MEQ/L Blood Urea Nitrogen 8 MG/DL Creatinine 0.50 MG/DL Estimat Glomerular Filtration 133 ML/MIN Rate Random Glucose 85 MG/DL Calcium Level 8.6 MG/DL Total Bilirubin 0.6 MG/DL Aspartate Amino Transf 34 U/L (AST/SGOT) Alanine Aminotransferase 43 U/L (ALT/SGPT) Alkaline Phosphatase 368 U/L Total Protein 7.4 GM/DL Albumin 3.1 GM/DL Microbiology Date/Time Procedure Status Source Growth 01/05/17 18:35 Gram Stain - Final Resulted Cerebral Spinal Fluid Lumbar Puncture 01/05/17 18:35 CSF Culture - Preliminary Resulted Cerebral Spinal Fluid Lumbar Puncture NO GROWTH IN 48 HOURS. 01/05/17 20:30 Aerobic Blood Culture - Preliminary Resulted Blood Peripheral NO GROWTH IN 2 DAYS 01/05/17 20:30 Anaerobic Blood Culture - Preliminary Resulted Blood Peripheral NO GROWTH IN 2 DAYS 01/05/17 20:38 Aerobic Blood Culture - Preliminary Resulted Blood Peripheral NO GROWTH IN 2 DAYS 01/05/17 20:38 Anaerobic Blood Culture - Preliminary Resulted Blood Peripheral NO GROWTH IN 2 DAYS Lumbar Puncture Fluoroscopy 01/05/17 0000 Signed Impressions: Service Date/Time: Thursday, January 05, 2017 18:04 - CONCLUSION: Uncomplicated fluoroscopically guided lumbar puncture with pressures as above. Ben Barkley MD PHYSICAL EXAMINATION: GENERAL: No acute distress. She is awake and alert and oriented. HEAD, EYES, EARS, NOSE, THROAT: No icterus. Oropharynx with no visible lesions. NECK: The neck is supple without adenopathy. LUNGS: Clear to auscultation. HEART: Regular rate and rhythm without murmurs, rubs or gallops. EXTREMITIES: No clubbing or cyanosis or edema. SKIN: No diffuse rash. Hyperemia of the face and neck. PSYCHIATRIC: The patient is calm and cooperative. NEUROLOGIC: Nonfocal. IMPRESSION: Meningitis, viral versus aseptic. RECOMMENDATIONS: 1. Continue to monitor the cerebrospinal fluid. 2. Continue ceftriaxone. 3. Follow herpes PCR test on the CSF. 4. Increase ambulation/ activity as tolerated. Reed Conteh MD Jan 07, 2017 16:14
[2017-01-07 17:03] VITALS: BP 124/72; PULSE 69; RESP 18; TEMP 98.8; O2SAT 98
[2017-01-07 17:07] VITALS: BP 124/72; PULSE 69; RESP 18; TEMP 98.8; O2SAT 98
[2017-01-07] MEDS: cefTRIAXone INJ 2,000 MG in SODIUM CHLORIDE 0.9% INJ 100 ML IV SCH (20:12)
[2017-01-07 20:35] VITALS: BP 158/80; PULSE 71; RESP 20; TEMP 98.4; O2SAT 99
[2017-01-08 00:10] VITALS: BP 114/61; PULSE 70; RESP 20; TEMP 97.4; O2SAT 97
[2017-01-08] MEDS: ACETAMIN 325 MG/BUTALBITAL 50 MG/CAFFEINE 40 MG TAB PO PRN ×3 (00:31→10:26)
[2017-01-08 05:08] VITALS: BP 128/68; PULSE 68; RESP 20; TEMP 97.8; O2SAT 97
[2017-01-08 08:00] VITALS: BP 136/75; PULSE 72; RESP 18; TEMP 98.8; O2SAT 96
[2017-01-08] MEDS: DOCUSATE SODIUM 50 MG/SENNA 8.6 MG TAB PO SCH (10:02)
[2017-01-08] MEDS: PARoxetine HCL 20 MG TAB PO SCH (10:02)
[2017-01-08] MEDS: SODIUM CHLORIDE 0.9% FLUSH 10 ML FLUSH IV FLUSH SCH (10:03)
[2017-01-08 12:00] VITALS: BP 142/72; PULSE 72; RESP 18; TEMP 98; O2SAT 98
--- NOTE | 2017-01-08 12:48 | HHI.PR ---
Subjective Remarks resting comfortably with no distress. has on and off headache. remains afebrile. Objective Vitals Vital Signs Date Time Temp Pulse Resp B/P Pulse Ox O2 Delivery O2 Flow Rate FiO2 01/08/17 12:00 98.0 72 18 142/72 98 01/08/17 08:00 98.8 72 18 136/75 96 01/08/17 05:08 97.8 68 20 128/68 97 01/08/17 00:10 97.4 70 20 114/61 97 01/08/17 00:00 Room Air 01/07/17 20:35 98.4 71 20 158/80 99 01/07/17 20:00 Room Air 01/07/17 17:07 98.8 69 18 124/72 98 01/07/17 17:03 98.8 69 18 124/72 98 01/07/17 14:06 99.3 70 18 117/71 94 I/O 01/07/17 01/07/17 01/07/17 01/08/17 01/08/17 01/08/17 07:00 15:00 23:00 07:00 15:00 23:00 Intake Total 240 ml 940 ml Balance 240 ml 940 ml Intake Oral 240 ml 840 ml IV Total 100 ml # Voids 2 # Bowel Movements 0 Result Diagram: 01/06/17 0712 01/06/17 0712 Imaging Last Impressions Lumbar Puncture Fluoroscopy 01/05/17 0000 Signed Impressions: Service Date/Time: Thursday, January 05, 2017 18:04 - CONCLUSION: Uncomplicated fluoroscopically guided lumbar puncture with pressures as above. Ben Barkley MD Objective Remarks GENERAL: This is a well-nourished, well-developed patient, in no apparent distress. CARDIOVASCULAR: Regular rate and regular rhythm without murmurs, gallops, or rubs. RESPIRATORY: Clear to auscultation. Breath sounds equal bilaterally. No wheezes , rales, or rhonchi. GASTROINTESTINAL: Abdomen soft, non-tender, nondistended. Normal, active bowel sounds MUSCULOSKELETAL: Extremities without clubbing, cyanosis, or edema. NEURO: Alert & Oriented x4 to person, place, time, situation. Moves all ext x4 Procedures LP Medications and IVs Current Medications Sodium Chloride (NS Flush) 2 ml UNSCH PRN IVF FLUSH AFTER USING IV ACCESS Last administered on 01/05/17 20:51; Start 01/05/17 at 15:30; Stop 01/05/17 at 20:56; Status DC Acetaminophen (Tylenol) 650 mg ONCE ONCE PO Last administered on 01/05/17 15: 50; Start 01/05/17 at 15:30; Stop 01/05/17 at 15:31; Status DC Prochlorperazine Edisylate (Compazine Inj) 10 mg ONCE ONCE IVP Last administered on 01/05/17 15:50; Start 01/05/17 at 15:30; Stop 01/05/17 at 15:31; Status DC Diphenhydramine HCl 25 mg 25 mg ONCE ONCE IVP Last administered on 01/05/17 15 :50; Start 01/05/17 at 15:30; Stop 01/05/17 at 15:31; Status DC Sodium Chloride (NS 1000 ml Inj) 1,000 ml @ 1,000 mls/hr Q1H ONCE IV Last administered on 01/05/17 15:49; Start 01/05/17 at 15:30; Stop 01/05/17 at 16:29; Status DC Promethazine HCl 25 mg 25 mg ONCE ONCE IM Last administered on 01/05/17 16:48 ; Start 01/05/17 at 16:45; Stop 01/05/17 at 16:46; Status DC Ceftriaxone Sodium/Sodium Chloride (Rocephin Inj/NS Inj) 100 ml @ 200 mls/hr ONCE ONCE IV Last administered on 01/05/17 20:51; Start 01/05/17 at 20:30; Stop 01/05/17 at 20:59; Status DC Sodium Chloride (NS Flush) 2 ml UNSCH PRN IV FLUSH FLUSH AFTER USING IV ACCESS ; Start 01/05/17 at 21:00 Sodium Chloride (NS Flush) 2 ml BID IV FLUSH Last administered on 01/08/17 10: 03; Start 01/05/17 at 21:00 Acetaminophen (Tylenol) 650 mg Q4H PRN PO TEMP > 100.4; Start 01/05/17 at 21:00 Ondansetron HCl (Zofran Inj) 4 mg Q6H PRN IVP NAUSEA OR VOMITING; Start at 21:00 Naloxone HCl (Narcan Inj) 0.4 mg UNSCH PRN IV SEE LABEL COMMENTS; Start at 21:00 Senna/Docusate Sodium (Paulette-Colace) 1 tab BID PO Last administered on 10:02; Start 01/05/17 at 21:00 Magnesium Hydroxide (Milk Of Magniraj Liq) 30 ml Q12H PRN PO MILD - MODERATE CONSTIPATION; Start 01/05/17 at 21:00 Sennosides (Senokot) 17.2 mg Q12H PRN PO MODERATE - SEVERE CONSTIPATION; Start 01/05/17 at 21:00 Bisacodyl (Dulcolax Supp) 10 mg DAILY PRN RECTAL SEVERE CONSITIPATION; Start at 21:00 Lactulose 30 ml 30 ml DAILY PRN PO SEVERE CONSITIPATION; Start 01/05/17 at 21:00 Ceftriaxone Sodium/Sodium Chloride (Rocephin Inj/NS Inj) 100 ml @ 200 mls/hr Q24H IV Last administered on 01/07/17 20:12; Start 01/06/17 at 20:00 Paroxetine HCl (Paxil) 40 mg DAILY PO Last administered on 01/08/17 10:02; Start 01/06/17 at 09:00 Patient Own Medication PT OWN MED: Tetrahydrozoline-Zinc... BID EACH EYE ; Start 01/06/17 at 09:00; Status Hold Acetaminophen/ Butalbital/ Caffeine 1 tab 1 tab Q4H PRN PO HEADACHE Last administered on 01/08/17 10:26; Start 01/05/17 at 23:00 Vancomycin HCl/ Sodium Chloride (Vancomycin Inj/ NS 250 ml Inj) 250 ml @ 250 mls/hr ONCE ONCE IV Last administered on 01/06/17 12:30; Start 01/06/17 at 11: 00; Stop 01/06/17 at 11:59; Status DC A/P Assessment and Plan A/P Meningitis, suspected viral -Lumbar puncture completed, CSF shows protein 47.4, wbc 36. - Rocephin IV- -fluid cultures negative so far. -follow the CSF HSV PCR -Fioricet for pain management -ID consult appreciated. Depression, chronic -Cont home medication: Paxil DVT prophylaxis: SCDs Discharge Planning when cleared by ID. Ondina Echols MD Jan 08, 2017 12:48
--- NOTE | 2017-01-08 13:42 | HHI.IDPN ---
Note Infectious Disease Note Patient notes that the CHUNG is better. No nausea. Eating. No fever. More active. Notes achiness all over. CSF culture negative. PAST MEDICAL HISTORY: 1. Rheumatoid arthritis. 2. Depression. 3. Meningitis. 4. Cholecystectomy. 5. Tonsillectomy. 6. Tubal ligation. 7. Lumbar fusion at L4-5. ALLERGIES: NO KNOWN DRUG ALLERGIES. MEDICATIONS: Current Medications Medications (Trade) Dose Ordered Sig/John Route PRN Reason Start Time Stop Time Status Last Admin Dose Admin Sodium Chloride (NS Flush) 2 ml UNSCH PRN IV FLUSH FLUSH AFTER USING IV ACCESS 01/05/17 21:00 Sodium Chloride (NS Flush) 2 ml BID IV FLUSH 01/05/17 21:00 01/08/17 10:03 Acetaminophen (Tylenol) 650 mg Q4H PRN PO TEMP > 100.4 01/05/17 21:00 Ondansetron HCl (Zofran Inj) 4 mg Q6H PRN IVP NAUSEA OR VOMITING 01/05/17 21:00 Naloxone HCl (Narcan Inj) 0.4 mg UNSCH PRN IV SEE LABEL COMMENTS 01/05/17 21:00 Senna/Docusate Sodium (Paulette-Colace) 1 tab BID PO 01/05/17 21:00 01/08/17 10:02 Magnesium Hydroxide (Milk Of Magnesia Liq) 30 ml Q12H PRN PO MILD - MODERATE CONSTIPATION 01/05/17 21:00 Sennosides (Senokot) 17.2 mg Q12H PRN PO MODERATE - SEVERE CONSTIPATION 01/05/17 21:00 Bisacodyl (Dulcolax Supp) 10 mg DAILY PRN RECTAL SEVERE CONSITIPATION 01/05/17 21:00 Lactulose 30 ml 30 ml DAILY PRN PO SEVERE CONSITIPATION 01/05/17 21:00 Ceftriaxone Sodium/Sodium Chloride (Rocephin Inj/NS Inj) 100 ml @ 200 mls/hr Q24H IV 01/06/17 20:00 01/07/17 20:12 Paroxetine HCl (Paxil) 40 mg DAILY PO 01/06/17 09:00 01/08/17 10:02 Patient Own Medication PT OWN MED: Tetrahydrozoline-Zinc... BID EACH EYE 01/06/17 09:00 Hold Acetaminophen/ Butalbital/ Caffeine (Fioricet 325-50-40) 1 tab Q4H PRN PO HEADACHE 01/05/17 23:00 01/08/17 10:26 SOCIAL HISTORY: The patient denies tobacco, alcohol or illicit drug use. 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 OBJECTIVE: Vital Signs Date Time Temp Pulse Resp B/P Pulse Ox O2 Delivery O2 Flow Rate FiO2 01/08/17 12:00 98.0 72 18 142/72 98 01/08/17 08:00 98.8 72 18 136/75 96 01/08/17 05:08 97.8 68 20 128/68 97 01/08/17 00:10 97.4 70 20 114/61 97 01/08/17 00:00 Room Air 01/07/17 20:35 98.4 71 20 158/80 99 01/07/17 20:00 Room Air 01/07/17 17:07 98.8 69 18 124/72 98 01/07/17 17:03 98.8 69 18 124/72 98 01/07/17 14:06 99.3 70 18 117/71 94 01/07/17 01/07/17 01/08/17 15:00 23:00 07:00 Intake Total 940 ml Balance 940 ml Intake Oral 840 ml IV Total 100 ml Microbiology Date/Time Procedure Status Source Growth 01/05/17 18:35 Gram Stain - Final Complete Cerebral Spinal Fluid Lumbar Puncture 01/05/17 18:35 CSF Culture - Final Complete Cerebral Spinal Fluid Lumbar Puncture NO GROWTH IN 72 HOURS 01/05/17 20:30 Aerobic Blood Culture - Preliminary Resulted Blood Peripheral NO GROWTH IN 3 DAYS 01/05/17 20:30 Anaerobic Blood Culture - Preliminary Resulted Blood Peripheral NO GROWTH IN 3 DAYS 01/05/17 20:38 Aerobic Blood Culture - Preliminary Resulted Blood Peripheral NO GROWTH IN 3 DAYS 01/05/17 20:38 Anaerobic Blood Culture - Preliminary Resulted Blood Peripheral NO GROWTH IN 3 DAYS Lumbar Puncture Fluoroscopy 01/05/17 0000 Signed Impressions: Service Date/Time: Thursday, January 05, 2017 18:04 - CONCLUSION: Uncomplicated fluoroscopically guided lumbar puncture with pressures as above. Ben Barkley MD PHYSICAL EXAMINATION: GENERAL: No acute distress. Awake and alert and oriented. HEAD, EYES, EARS, NOSE, THROAT: No icterus. Oropharynx with no visible lesions. NECK: The neck is supple without adenopathy. LUNGS: Clear to auscultation. HEART: Regular rate and rhythm without murmurs, rubs or gallops. EXTREMITIES: No clubbing or cyanosis or edema. SKIN: No diffuse rash. Hyperemia of the face and neck. PSYCHIATRIC: The patient is calm and cooperative. NEUROLOGIC: Nonfocal. Psych: calm and cooperative. IMPRESSION: Meningitis, viral versus aseptic. RECOMMENDATIONS: Stop Ceftriaxone. Okay to Discharge from ID standpoint. Patient to increase her activity as tolerated. Reed Conteh MD Jan 08, 2017 13:42
--- NOTE | 2017-01-08 13:44 | HHI.DCPOC ---
Discharge Care Plan Diagnosis: (1) Meningitis Your Health Problems Are: Inflammation Goals to Promote Your Health * To prevent worsening of your condition and complications * To maintain your health at the optimal level Directions to Meet Your Goals Take your medications as prescribed Follow your dietary instruction Follow activity as directed Keep your appointments as scheduled Take your immunizations and boosters as scheduled If your symptoms worsen call your PCP, if no PCP go to Urgent Care Center or Emergency Room Smoking is Dangerous to Your Health. Avoid second hand smoke Call the 24-hour hour crisis hotline for domestic abuse at Ondina Echols MD Jan 08, 2017 13:44
--- NOTE | 2017-01-08 13:45 | HHI.DS ---
Discharge Summary Admission Date Jan 05, 2017 at 20:36 Discharge Date: Jan 08, 2017 Admitting Diagnosis meningitis (1) Meningitis ICD Code: G03.9 Diagnosis: Principal Procedures LP Brief History - From Admission Written by NERISSA Fuller acting as scribe for Dr. Medina] on 01/05/17 at 22:22. 46 y/o female visiting from [place] with a history of CHUNG, Depression, dry eyes, RA and meningitis 2004 presented to the ED with complaints of increased Headaches since Sunday. She was seen early this morning in the ED, was given medication and then discharged. She states the pain improved for a little bit but then got work tonight. She states it is a dull ache, currently 3/10 behind both her eyes made worse with light and sound. In ED it was a 10/10 with associated nausea, vomiting, and sob. She states at home she also have fevers of 99, chills, and neck stiffness. Denies any chest pain. CBC/BMP: 01/06/17 0712 01/06/17 0712 Significant Findings Laboratory Tests Test 01/05/17 01/05/17 01/06/17 15:45 18:35 07:12 Hemoglobin 9.6 GM/DL 9.8 GM/DL (11.6-15.3) (11.6-15.3) Hematocrit 30.4 % 31.5 % (35.0-46.0) (35.0-46.0) Mean Corpuscular Volume 69.3 FL 70.2 FL (80.0-100.0) (80.0-100.0) Mean Corpuscular Hemoglobin 21.8 PG 21.8 PG (27.0-34.0) (27.0-34.0) Mean Corpuscular Hemoglobin 31.5 % 31.0 % Concent (32.0-36.0) (32.0-36.0) Monocytes (%) (Auto) 17.0 % 19.1 % (0.0-8.0) (0.0-8.0) Monocytes # (Auto) 1.2 TH/MM3 1.3 TH/MM3 (0-0.9) (0-0.9) Erythrocyte Sedimentation Rate 46 mm/hr (0-20) Sodium Level 133 MEQ/L (136-145) Random Glucose 142 MG/DL (74-106) Calcium Level 8.4 MG/DL (8.5-10.1) CSF WBC (Tube 4) 36 /MM3 (0-10) CSF RBC (Tube 4) 11 /MM3 (NONE) CSF Total Protein 47.4 MG/DL (15.0-45.0) Red Cell Distribution Width 17.7 % (11.6-17.2) Alkaline Phosphatase 368 U/L (45-117) Albumin 3.1 GM/DL (3.4-5.0) Imaging Last Impressions Lumbar Puncture Fluoroscopy 01/05/17 0000 Signed Impressions: Service Date/Time: Thursday, January 05, 2017 18:04 - CONCLUSION: Uncomplicated fluoroscopically guided lumbar puncture with pressures as above. Ben Barkley MD PE at Discharge GENERAL: This is a well-nourished, well-developed patient, in no apparent distress. CARDIOVASCULAR: Regular rate and regular rhythm without murmurs, gallops, or rubs. RESPIRATORY: Clear to auscultation. Breath sounds equal bilaterally. No wheezes , rales, or rhonchi. GASTROINTESTINAL: Abdomen soft, non-tender, nondistended. Normal, active bowel sounds MUSCULOSKELETAL: Extremities without clubbing, cyanosis, or edema. NEURO: Alert & Oriented x4 to person, place, time, situation. Moves all ext x4 Hospital Course Meningitis, suspected viral -Lumbar puncture completed, CSF shows protein 47.4, wbc 36. - Rocephin IV- -fluid cultures negative so far. -follow the CSF HSV PCR -Fioricet for pain management -ID consult appreciated. Depression, chronic -Cont home medication: Paxil Pt Condition on Discharge: Fair Discharge Disposition: Discharge Home Discharge Time: <= 30 minutes Discharge Instructions DIET: Follow Instructions for: Heart Healthy Diet Activities you can perform: Regular-No Restrictions Follow up Referrals: PCP Follow-up Continued Medications: Alprazolam (Xanax) 0.5 Mg Tab 0.5 MG PO Q6H PRN ANXIETY Ref 0 TAB Djixbdqany-Ivbvsmeyxemdy-Tfbauabf (Fioricet) 50-300-40 Mg Cap 1 CAP PO Q4H PRN HEADACHE #20 Ref 0 CAP Hydrocodone-Acetaminophen (Adah) 7.5-325 mg Tab 1 TAB PO Q4H PRN PAIN Ref 0 TAB Omeprazole Magnesium (Prilosec) 10 Mg Pow Paroxetine (Paxil) 30 Mg Tab 40 MG PO DAILY #30 Ref 0 TAB Tetrahydrozoline-Zinc Sulfate Opth Drops (Eye Drops Allergy Relief Opth Drops) 0.05-0.25 % Soln 1 DROP EACH EYE BID Allergy Management #1 Ref 0 BOTTLE Discontinued Medications: Adalimumab 2-Pack Inj (Humira 2-Pack Inj) 40 Mg/0.8 Ml Syr 40 MG SQ Q14D #1 Ref 0 KIT Meloxicam (Meloxicam) 15 Mg Tab 15 MG PO DAILY Arthritis Pain #30 Ref 0 TAB Ondina Echols MD Jan 08, 2017 13:45
[2017-01-09 13:01] LABS: HSV 1,PCR Negative (Negative)
== END 2017-01-08 14:42 | disposition home or self-care (01) | DRG 99 ==
LOC: NEPD 14:56 → NEDA 20:36 → N04B 21:47
PROVIDERS: ADMIT Internal Medicine; ATTEND Internal Medicine
PROC: 009U3ZX Drainage of Spinal Canal, Percutaneous Approach, Diagnostic (ICD-10-PCS; principal; 2017-01-05)
PROC: B01B1ZZ Fluoroscopy of Spinal Cord using Low Osmolar Contrast (ICD-10-PCS; 2017-01-05)
DX: G03.9 Meningitis, unspecified (principal); F32.9 Major depressive disorder, single episode, unspecified; H04.129 Dry eye syndrome of unspecified lacrimal gland; M06.9 Rheumatoid arthritis, unspecified; Z72.0 Tobacco use; Z86.61 Personal history of infections of the central nervous system; R51 Headache
CPT/HCPCS: 62270; 76937; 77003; 80048; 80053; 82945; 84157; 85025; 85610; 85652; 87040; 87070; 87205; 87529; 89051; 96361; 96372; 96374; 96375; J0696; J0780; J1200; J2550; J3370; J7030; J7050